=== PATIENT | male | born 1955 | race Caucasian/White ===

== ENCOUNTER 2016-10-04 14:03 | Emergency (ER) | payer BC ==
[2016-10-04 14:44] VITALS: BP 114/72
[2016-10-04] MEDS ORDERED: Ketorolac 60 MG/2 ML SDV IM ONE (15:02)
[2016-10-04 15:41] LABS: CHLORIDE,CL 104 mmol/L (98-110); SODIUM,NA 140 mmol/L (136-146)
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
== END 2016-10-04 17:03 | disposition home or self-care (01) ==
LOC: MW.ED 14:03
DX: M11.272 Other chondrocalcinosis, left ankle and foot (principal); M11.271 Other chondrocalcinosis, right ankle and foot
CPT/HCPCS: 36415; 80053; 81001; 84550; 85025; 96372; 99283; J1885; 99284

== ENCOUNTER 2021-03-29 08:37 | Day surgery (SDC) | payer BC ==
[~2021-03-29 08:37] MED LIST: Lactated Ringers 1,000 ML IV SCH
[2021-03-29] MEDS ORDERED: Propofol 200 MG/20 ML SDV ONE (09:04)
[2021-03-29] MEDS ORDERED: fentaNYL 100 MCG/2 ML SDV ONE (09:04)
[2021-03-29] MEDS ORDERED: Lidocaine 2% 5 ML SDV ONE (10:16)
[2021-03-29] MEDS ORDERED: Lactated Ringers 1,000 ML IV SCH (11:15)
[2021-03-29 12:06] VITALS: BP 125/85; PULSE 66
== END 2021-03-29 11:56 | disposition home or self-care (01) ==
LOC: MW.SDS 08:37
PROVIDERS: ATTEND Surgery
DX: K62.5 Hemorrhage of anus and rectum (principal); D50.0 Iron deficiency anemia secondary to blood loss (chronic); K29.70 Gastritis, unspecified, without bleeding; K44.9 Diaphragmatic hernia without obstruction or gangrene; K31.89 Other diseases of stomach and duodenum; Z79.899 Other long term (current) drug therapy; Z98.890 Other specified postprocedural states
CPT/HCPCS: 43239; 45378; J2704; J3010; J7120; 00813

== ENCOUNTER 2022-03-17 04:44 | Emergency (ER) | payer BC ==
[2022-03-17] MEDS ORDERED: Ketorolac 30 MG/ML SDV IVPUSH ONE (04:57)
[2022-03-17] MEDS ORDERED: fentaNYL 50 MCG/ML SDV IVPUSH ONE ×2 (04:59→06:41)
[2022-03-17] MEDS ORDERED: Ondansetron 4 MG/2 ML SDV IVPUSH ONE (04:59)
[2022-03-17] MEDS ORDERED: Sodium Chloride 0.9% 1,000 ML IV ONE (05:06)
[2022-03-17 05:27] LABS: CARBON DIOXIDE,CO2 24.3 mmol/L (21.0-32.0); POTASSIUM,K 4.4 mmol/L (3.5-5.1)
[2022-03-17] MEDS ORDERED: Tamsulosin 0.4 MG Cap.ER PO ONE (05:37)
[2022-03-17 07:02] VITALS: BP 174/100; PULSE 78
== END 2022-03-17 07:00 | disposition home or self-care (01) ==
LOC: MW.ED 04:44
DX: N13.2 Hydronephrosis with renal and ureteral calculous obstruction (principal); M10.9 Gout, unspecified; Z79.899 Other long term (current) drug therapy
CPT/HCPCS: 36415; 74176; 80053; 81001; 85025; 96361; 96374; 96375; 96376; 99284; A9270; J1885; J2405; J3010; J7030

== ENCOUNTER 2024-03-16 22:46 | Emergency (ER) | payer BC ==
[2024-03-16 22:56] VITALS: BP 144/76; PULSE 86
[2024-03-16 23:04] LABS: BASOPHILS ABSOLUTE AUTO 0.04 K/uL (0.00-0.20); BASOPHILS PERCENT AUTO 0.5 % (0.0-1.0); EOSINOPHILS ABSOLUTE AUTO 0.06 K/uL (0.00-0.45); EOSINOPHILS PERCENT AUTO 0.7 % (0.0-6.0); HEMATOCRIT 27.7 % (42.0-52.0); HEMOGLOBIN 8.5 g/dL (14.0-18.0); IMMATURE GRAN ABSOLUTE AUTO 0.05 K/uL (0.00-0.05); IMMATURE GRAN PERCENT AUTO 0.6 % (0.0-0.4); LYMPHOCYTES ABSOLUTE AUTO 1.13 K/uL (1.00-4.80); MEAN CORPUSCULAR HEMOGLOBIN 23.2 pg (28.0-32.0); MEAN CORPUSCULAR HGB CONC 30.7 g/dL (32.0-36.0); MEAN CORPUSCULAR VOLUME 75.5 fL (83.0-99.0); MEAN PLATELET VOLUME 8.9 fL (9.4-12.4); MONOCYTES PERCENT AUTO 8.7 % (0.0-8.0); NEUTROPHILS PERCENT AUTO 75.5 % (41.0-71.0); NRBC ABSOLUTE 0.03 K/uL (0.00-0.02); NRBC PERCENT 0.4 /100WBC (0.0-0.2); PLATELET COUNT,PLT 258 K/uL (150-400); RED BLOOD CELL COUNT 3.67 M/uL (4.52-5.90); WHITE BLOOD CELL COUNT,WBC 8.08 K/uL (3.9-11.3)
[2024-03-16 23:16] LABS: INR 1.09 (0.86-1.11)
[2024-03-16 23:28] LABS: PH,VENOUS 7.5 (7.31-7.41)
[2024-03-16 23:32] LABS: A/G RATIO 0.9 (0.9-1.6); ALANINE AMINOTRANSFERASE,ALT 23 IU/L (14-63); ALBUMIN 3.4 g/dL (3.4-5.0); ALKALINE PHOSPHATASE 92 U/L (46-116); ASPARTATE AMNIOTRANSFERASE,AST 19 IU/L (15-37); BILIRUBIN TOTAL 0.5 mg/dL (0.2-1.0); BLOOD UREA NITROGEN,BUN 19 mg/dL (7.0-18.0); CARBON DIOXIDE,CO2 24.1 mmol/L (21.0-32.0); CHLORIDE,CL 103 mmol/L (98-107); CREATININE 1.1 mg/dL (0.8-1.3); EST CRCL DRUG DOSING (CG) 68.21 mL/min; GLUCOSE RANDOM 124 mg/dL (74-106); LIPASE 40 U/L (16-77); PERCENT FE SATURATION 3.39 % (20-55); POTASSIUM,K 4.2 mmol/L (3.5-5.1); PRO B-TYPE NATRIUR PEPT,BNPPRO 71 pg/mL (0-125); PROTEIN TOTAL,TP 7.4 g/dL (6.4-8.2); SODIUM,NA 140 mmol/L (136-148)
[2024-03-16 23:33] LABS: ESTIMATED GFR 74 mL/min (>60)
[2024-03-16] MEDS: Aspirin 81 MG Tab.Chew PO ONE (23:38)
[2024-03-16] MEDS: Ondansetron 4 MG/2 ML SDV IVPUSH ONE (23:38)
[2024-03-16] MEDS: Morphine 4 MG/ML Syringe IVPUSH ONE (23:38)
[2024-03-16] MEDS: Sodium Chloride 0.9% 1,000 ML IV ONE (23:55)
== END 2024-03-17 00:24 | disposition left against medical advice (07) ==
LOC: MW.ED 22:46
DX: D64.9 Anemia, unspecified (principal); M25.422 Effusion, left elbow; R05.1 Acute cough; E87.3 Alkalosis; R06.82 Tachypnea, not elsewhere classified
CPT/HCPCS: 36415; 71045; 73080; 73130; 80053; 82803; 83550; 83690; 83735; 83880; 84484; 85025; 85610; 85652; 86140; 93005; 96374; 96375; 99285; A9270; J1100; J2270; J2405; J7030; 93010; 99283

== ENCOUNTER 2024-12-30 10:24 | Day surgery (SDC) | payer BC ==
[2024-12-30] MEDS: Lactated Ringers 1,000 ML IV SCH (10:50)
[2024-12-30] MEDS ORDERED: Propofol 200 MG/20 ML SDV ONE ×2 (11:24→12:04)
[2024-12-30] MEDS ORDERED: Lactated Ringers 1,000 ML IV SCH (12:30)
[2024-12-30 13:13] VITALS: BP 124/93; PULSE 71
== END 2024-12-30 13:00 | disposition home or self-care (01) ==
LOC: MW.SDS 10:24
PROVIDERS: ATTEND Surgery
DX: D50.0 Iron deficiency anemia secondary to blood loss (chronic) (principal); K29.70 Gastritis, unspecified, without bleeding; K44.9 Diaphragmatic hernia without obstruction or gangrene; K31.89 Other diseases of stomach and duodenum; R13.10 Dysphagia, unspecified; Z79.899 Other long term (current) drug therapy
CPT/HCPCS: 43239; 45378; J2003; J2704; J7120; 00813